=== PATIENT | male | born 2000 | race African-American/Black ===

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

== ENCOUNTER 2020-03-30 08:27 | Emergency (ER) | payer MEDICAID ==
[~2020-03-30] VITALS: Ht 170.2 cm; Wt 104.5 kg
[2020-03-30] MEDS ORDERED: AZITHROMYCIN 500 MG TABLET PO ONE (09:30)
[2020-03-30] MEDS ORDERED: IBUPROFEN 800MG TABLET PO ONE (09:30)
[2020-03-30] MEDS ORDERED: CEFTRIAXONE SODIUM 250 MG/VIAL IM ONE (09:30)
[2020-03-30 09:50] VITALS: BP 143/87
[2020-04-03 05:10] LABS: NEISSERIA GONORRHOEAE NAA Negative (Negative)
== END 2020-03-30 09:52 | disposition home or self-care (01) ==
LOC: ER 08:27
DX: K62.89 Other specified diseases of anus and rectum (principal); J45.909 Unspecified asthma, uncomplicated; Z98.890 Other specified postprocedural states
CPT/HCPCS: 87491; 87591; 96372; 99283; J0696

== ENCOUNTER 2020-04-02 08:47 | Emergency (ER) | payer MEDICAID ==
[~2020-04-02] VITALS: Ht 170.2 cm; Wt 104.0 kg
[2020-04-02] MEDS ORDERED: GLYCERIN ADULT SUPPOSITORY PR ONE (10:00)
[2020-04-02 11:07] VITALS: BP 148/98
== END 2020-04-02 11:12 | disposition home or self-care (01) ==
LOC: ER 08:47
DX: K59.00 Constipation, unspecified (principal); K64.4 Residual hemorrhoidal skin tags; J45.909 Unspecified asthma, uncomplicated; Z98.890 Other specified postprocedural states
CPT/HCPCS: 99282

== ENCOUNTER 2021-04-24 11:26 | Emergency (ER) | payer MEDICAID ==
[~2021-04-24] VITALS: Ht 172.7 cm; Wt 75.0 kg
[2021-04-24 11:35] VITALS: BP 158/81
[2021-04-24 13:05] LABS: BASOPHILS % 0.5 % (0.0-2.0); EOSINOPHILS % 0.6 % (0.0-5.0); HEMATOCRIT. 45.2 % (42.0-52.0); HEMOGLOBIN. 15.5 g/dL (14.0-18.0); LYMPHOCYTES % 30.3 % (20.0-50.0); MEAN CORPUSCULAR HEMOGLOBIN 30.6 pg (28.0-32.0); MEAN CORPUSCULAR VOLUME 89.4 fL (80.0-94.0); MEAN PLATELET VOLUME 7.4 fl (7.4-10.4); MONOCYTES % 9.4 % (2.0-8.0); NEUTROPHILS % 59.2 % (40.0-76.0); PLATELET 250 x1000/uL (130-400); RED BLOOD CELL COUNT 5.05 mill/uL (4.7-6.1); RED CELL DISTRIBUTION WIDTH 13.3 % (11.6-14.6)
[2021-04-24 13:09] LABS: INR 1.1; PROTHROMBIN TIME 11.3 sec (9.6-11.0)
[2021-04-24 13:18] LABS: CHLORIDE 110 mEq/L (98-107)
[2021-04-24 13:50] LABS: CLARITY URINE CLEAR (CLEAR); COLOR URINE YELLOW (YELLOW); KETONES URINE NEGATIVE (NEGATIVE); LEUKOCYTE ESTERASE URINE NEGATIVE (NEGATIVE); NITRITE URINE NEGATIVE (NEGATIVE); OCCULT BLOOD URINE NEGATIVE (NEGATIVE); PH URINE 5.5 (4.5-8.0); PROTEIN URINE NEGATIVE (NEGATIVE); SPECIFIC GRAVITY URINE 1.019 (1.005-1.030); UROBILINOGEN URINE 0.2 E.U./dL (0.2-1.0)
[2021-04-24] MEDS ORDERED: OMEP20CA14 MT (14:11)
== END 2021-04-24 14:41 | disposition home or self-care (01) ==
LOC: ER 11:26
DX: R07.89 Other chest pain (principal); R10.9 Unspecified abdominal pain; I11.0 Hypertensive heart disease with heart failure; I50.9 Heart failure, unspecified; J45.909 Unspecified asthma, uncomplicated; E11.9 Type 2 diabetes mellitus without complications; Z90.49 Acquired absence of other specified parts of digestive tract
CPT/HCPCS: 36415; 71045; 80053; 81003; 83880; 84484; 85025; 93005; 99285

== ENCOUNTER 2024-02-24 19:16 | Emergency (ER) | payer MEDICAID ==
[~2024-02-24] VITALS: Ht 170.2 cm; Wt 104.0 kg
[~2024-02-24 19:16] MED LIST changes: +OMEP20CA14 MT
[2024-02-24 20:02] VITALS: BP 170/96; PULSE 107; RESP 20; TEMP 98.6; O2SAT 99
[2024-02-24] MEDS ORDERED: IBUP-2028 MT (23:11)
[2024-02-24] MEDS: IBUPROFEN 400MG TABLET PO ONE (23:23)
== END 2024-02-25 23:24 | disposition home or self-care (01) ==
LOC: ER 19:16
DX: M25.512 Pain in left shoulder (principal); J45.909 Unspecified asthma, uncomplicated
CPT/HCPCS: 73030; 99283